=== PATIENT | female | born 1985 | race Caucasian/White ===

== ENCOUNTER → 2016-12-22 | Outpatient (CLI) | payer BC, OTHER ==
--- NOTE | 2016-12-22 10:07 | USB ---
Reason for exam: clinical finding. History: Family history of breast cancer in mother at age 36. Took hormonal contraceptives for 1 year beginning at age 26. Indicated problem(s): pain in the right breast. Physical Findings: Nurse Summary: pain starts in nipple travels to axilla/ 9-12 o'clock (nurse kp). US Breast RT Right breast ultrasound includes all four quadrants, the retroareolar region and axilla. Finding demonstrates a 0.5 x 0.3 x 0.6cm oval, cystic lesion at 7 o'clock for which a 6 month follow up is recommended and duct ectasia at the posterior nipple. These results were verbally communicated with the patient and result sheet given to the patient on 12/22/16 ASSESSMENT: Probably benign, BI-RAD 3 RECOMMENDATION: Ultrasound of the right breast in 6 months. Manage patient on a clinical basis. Routine screening mammogram of both breasts at age 35.
== END | disposition home or self-care (01) ==
LOC: RADUSWWP 09:01
PROVIDERS: ATTEND Obstetrics & Gynecology
DX: N64.4 Mastodynia (principal); Z80.3 Family history of malignant neoplasm of breast

== ENCOUNTER → 2017-06-25 | Outpatient (CLI) | payer BC ==
--- NOTE | 2017-06-25 08:20 | USB ---
Reason for exam: follow-up at short interval from prior study. History: Family history of breast cancer in mother at age 36. Took hormonal contraceptives for 1 year beginning at age 26. Physical Findings: Nurse did not find any significant physical abnormalities on exam. US Breast RT Right breast ultrasound includes all four quadrants, the retroareolar region and axilla. Finding demonstrates duct ectasia at the posterior nipple. Otherwise, no solid or cystic lesion. The previously seen 7 o'clock cystic lesion has resolved. These results were verbally communicated with the patient and result sheet given to the patient on 06/25/17. ASSESSMENT: Negative, BI-RAD 1 RECOMMENDATION: Routine screening mammogram of both breasts at age 40. (At age 40 unless clinical indication to start sooner. As the patient's mother had breast cancer at 36 years old, consideration can be given to starting screening now). BECKY
== END | disposition home or self-care (01) ==
LOC: RADUSWWP 06:58
PROVIDERS: ATTEND Obstetrics & Gynecology
DX: R92.8 Other abnormal and inconclusive findings on diagnostic imaging of breast (principal)

== ENCOUNTER 2018-07-17 20:44 | Emergency (ER) | payer BC ==
[2018-07-17 21:11] VITALS: BP 138/75; PULSE 107; RESP 18; TEMP 98.6
--- NOTE | 2018-07-17 22:02 | XR ---
EXAMINATION TYPE: XR ankle complete LT DATE OF EXAM: 07/17/2018 COMPARISON: NONE HISTORY: Ankle pain TECHNIQUE: 3 views FINDINGS: Ankle mortise is anatomic. There is a nondisplaced avulsion chip fracture of the base of th e fifth metatarsal. This measures 7 mm. IMPRESSION: Small chip fracture of the base of the fifth metatarsal.
--- NOTE | 2018-07-17 22:04 | XR ---
EXAMINATION TYPE: XR foot complete LT DATE OF EXAM: 07/17/2018 COMPARISON: NONE HISTORY: Pain TECHNIQUE: 3 views FINDINGS: There is nondisplaced transverse fracture across the base of the fifth metatarsal. There is a small fragment that measures 13 x 5 mm. IMPRESSION: Small chip fracture of the base of the fifth metatarsal. No displacement.
--- NOTE | 2018-07-17 22:07 | XR ---
EXAMINATION TYPE: XR tibia fibula LT DATE OF EXAM: 07/17/2018 COMPARISON: NONE HISTORY: Pain TECHNIQUE: 2 views FINDINGS: I see no fracture nor dislocation. Knee joint and ankle joint appear intact. There are no p athologic calcifications. IMPRESSION: Negative left tibia and fibula exam.
--- NOTE | 2018-07-17 22:49 | ED ---
General Adult HPI - General Source: patient, RN notes reviewed, old records reviewed Mode of arrival: wheelchair Limitations: physical limitation <Jesus Sorto - Last Filed: 07/17/18 23:12> <Angelika Cobb - Last Filed: 07/18/18 00:34> - General Chief complaint: Extremity Injury, Lower Stated complaint: ankle injury - History of Present Illness Initial comments: 33 y/o female pt presents in ED for L foot/ankle pain. Pt states that she was walking in her house when she stepped on one of her children's toys, suffered a left ankle inversion injury. Patient states that she has pain in her left lateral foot, patient is not ambulatory secondary to pain. Patient didn't fall , denies head trauma, denies neck trauma, loss of consciousness. Patient denies use of blood thinners. Patient had nausea vomiting diarrhea, fevers chills. Patient denies injury to any other extremity. Patient denies chest pain shortness of breath, abdominal pain. Systemic: Pt denies fatigue, myalgia, fever/chills, rash. Pt denies weakness, night sweats, weight loss. Neuro: Pt denies headache, visual disturbances, syncope or pre-syncope. HEENT: Pt denies ocular discharge or irritation, otalgia, rhinorrhea, pharyngitis or notable lymphadenopathy. Cardiopulmonary: Pt denies chest pain, SOB, heart palpitations, dyspnea on exertion. Abdominal/GI: Pt denies abdominal pain, n/v/d. : Pt denies dysuria, burning w/ urination, frequency/urgency. Denies new onset urinary or bowel incontinence. MSK: Pt denies myalgia, loss of strength or function in extremities. Neuro: Pt denies new onset weakness, paresthesias. (Jesus Sorto) - Related Data Home Medications Medication Instructions Recorded Confirmed No Known Home Medications 07/17/18 07/17/18 Allergies Allergy/AdvReac Type Severity Reaction Status Date / Time No Known Allergies Allergy Verified 07/17/18 21:11 Review of Systems ROS Other: All systems not noted in ROS Statement are negative. <Jesus Sorto - Last Filed: 07/17/18 23:12> ROS Other: All systems not noted in ROS Statement are negative. <Angelika Cobb - Last Filed: 07/18/18 00:34> ROS Statement: Those systems with pertinent positive or pertinent negative responses have been documented in the HPI. Past Medical History Past Medical History: No Reported History Additional Past Medical History / Comment(s): tyrese.leg varicose veins History of Any Multi-Drug Resistant Organisms: None Reported Past Surgical History: Section Additional Past Surgical History / Comment(s): wisdom teeth removal Past Anesthesia/Blood Transfusion Reactions: No Reported Reaction Past Psychological History: No Psychological Hx Reported Smoking Status: Never smoker Past Alcohol Use History: None Reported Past Drug Use History: None Reported - Past Family History Father Family Medical History: Cancer, Hypertension Additional Family Medical History / Comment(s): skin cancer Mother Family Medical History: Cancer Additional Family Medical History / Comment(s): breast cancer- <Jesus Sorto - Last Filed: 07/17/18 23:12> General Exam Limitations: physical limitation <Jesus Sorto - Last Filed: 07/17/18 23:12> <Angelika Cobb - Last Filed: 07/18/18 00:34> - General Exam Comments Initial Comments: Constitutional: NAD, AOX3, Pt has pleasant affect. HEENT: NC/AT, trachea midline, neck supple, no lymphadenopathy. Posterior pharynx non erythematous, without exudates. External ears appear normal, without discharge. Mucous membranes moist. Eyes PERRLA, EOM intact. There is no scleral icterus. No pallor noted. Cardiopulmonary: RRR, no murmurs, rubs or gallops, no JVD noted. Lungs CTAB in anterior and posterior quintanilla. No peripheral edema. Abdominal exam: Abdomen soft and non-distended. Abdomen non-tender to palpation in all 4 quadrants. Bowel sounds active in LLQ. No hepatosplenomegaly. No ecchymosis Neuro: CN II-XII grossly intact. No nuchal rigidity. MSK: Lateral metatarsal mildly tender to palpation. Patient plantar flexion and dorsiflexion intact, 5 over 5 strength. Patient posterior tibialis pulse + 2 bilaterally. Patient sensation intact. Patient neurovascularly intact before and after splint placement. No posterior calf tenderness bilaterally, homans sign negative bilaterally. Posterior tibialis and radial pulse +2 bilaterally. Sensation intact in upper and lower extremities. Full active ROM in upper and lower extremities, 5/5 strength. (Jesus Sorto) Vital Signs 07/17/18 21:08 Temperature 98.6 F Pulse Rate 107 H Respiratory 18 Rate Blood Pressure 138/75 O2 Sat by Pulse 100 Oximetry Medical Decision Making <Jesus Sorto - Last Filed: 07/17/18 23:12> <Angelika Cobb - Last Filed: 07/18/18 00:34> - Medical Decision Making 32-year-old female patient presents ED after sustaining a mechanical injury stepping on a child's toy, suffering a left ankle inversion injury. Patient primary complaint is pain in left foot. Patient tenderness of left lateral foot , fifth metatarsal. When film displayed small chip fracture base of left fifth metatarsal. Patient placed in posterior splint. Patient to vascular intact before and after splint placement. Patient nonweightbearing and told to follow- up. Patient given referral fororthopedic follow-up in Morning. Patient to return to ED if any signs or symptoms develop. Patient to follow with primary care physician in one to 2 days. Case discussed with Dr. Cobb. (Jesus Sorto) I was available for consultation in the emergency department. The history and physical exam were done by the midlevel provider. I was consulted for this patient's care. I reviewed the case with the midlevel provider and based on their presentation of the patient, I agree with the assessment, medical decision making and plan of care as documented. (Angelika Cobb) Disposition Is patient prescribed a controlled substance at d/c from ED?: No Time of Disposition: 22:49 <Jesus Sorto - Last Filed: 07/17/18 23:12> <Angelika Cobb - Last Filed: 07/18/18 00:34> Clinical Impression: Metatarsal bone fracture Disposition: HOME SELF-CARE Condition: Good Instructions: Foot Fracture in Adults (ED) Additional Instructions: Patient to adhere to previously discussed treatment plan and will take medication(s) as directed. Patient to follow up with PCP in 1-2 days. Patient to return to ED if symptoms do not improve. Referrals: Edvin Yeh MD [Primary Care Provider] - 1-2 days Harshad Perkins MD [STAFF PHYSICIAN] - 1-2 days
== END 2018-07-17 23:05 | disposition home or self-care (01) ==
LOC: EC 20:44
DX: S92.352A Displaced fracture of fifth metatarsal bone, left foot, initial encounter for closed fracture (principal); Z98.890 Other specified postprocedural states
CPT/HCPCS: 29515; 99284

== ENCOUNTER → 2019-01-03 | Outpatient (CLI) | payer BC ==
--- NOTE | 2019-01-03 09:28 | MM ---
Reason for exam: clinical finding. Last mammogram was performed 1 year and 1 month ago. History: Family history of breast cancer in maternal grandmother and breast cancer in mother at age 37. Took hormonal contraceptives for 1 year beginning at age 26. Physical Findings: Nurse did not find any significant physical abnormalities on exam. MG 3D Diag Mammo W/Cad LETICIA Bilateral CC and MLO view(s) were taken. Prior study comparison: November 22, 2017, bilateral MG 3d screening mammo w/cad. August 09, 2015, bilateral MG 3d diag mammo w/cad LETICIA. The breast tissue is extremely dense which could obscure a lesion on mammography. There are benign appearing round vascular calcifications in the left breast. There is no discrete abnormality. These results were verbally communicated with the patient and result sheet given to the patient on 01/03/19. ASSESSMENT: Negative, BI-RAD 1 RECOMMENDATION: Routine screening mammogram of both breasts at age 40. Manage on a clinical basis with regard to right breast pain. Consider MRI in high risk patient.
--- NOTE | 2019-01-03 09:30 | USB ---
Reason for exam: clinical finding. History: Family history of breast cancer in maternal grandmother and breast cancer in mother at age 37. Took hormonal contraceptives for 1 year beginning at age 26. US Breast RT Right complete breast ultrasound includes all four quadrants, the retroareolar region and axilla. Finding demonstrates no cystic or solid lesion seen. These results were verbally communicated with the patient and result sheet given to the patient on 01/03/19. ASSESSMENT: Negative, BI-RAD 1 RECOMMENDATION: Routine screening mammogram of both breasts at age 40. Manage on a clinical basis with regard to right breast pain. Consider MRI in high risk patient.
== END | disposition home or self-care (01) ==
LOC: RADMAMWWP 07:36
PROVIDERS: ATTEND Obstetrics & Gynecology
DX: N60.09 Solitary cyst of unspecified breast (principal); R92.8 Other abnormal and inconclusive findings on diagnostic imaging of breast
CPT/HCPCS: 77062; 77066

== ENCOUNTER → 2020-02-17 | Outpatient (CLI) | payer BC ==
--- NOTE | 2020-02-18 11:27 | MM ---
Reason for exam: screening (asymptomatic). Last mammogram was performed 1 year and 1 month ago. History: Family history of breast cancer in maternal grandmother and breast cancer in mother at age 37. Took hormonal contraceptives for 1 year beginning at age 26. Physical Findings: A clinical breast exam by your physician is recommended on an annual basis and results should be correlated with mammographic findings. MG 3D Screening Mammo W/Cad Bilateral CC and MLO view(s) were taken. Prior study comparison: January 03, 2019, bilateral MG 3d diag mammo w/cad LETICIA. November 22, 2017, bilateral MG 3d screening mammo w/cad. The breast tissue is extremely dense which could obscure a lesion on mammography. Stable benign calcifications. There is no discrete abnormality. No significant changes when compared with prior studies. ASSESSMENT: Benign, BI-RAD 2 RECOMMENDATION: Routine screening mammogram of both breasts in 1 year.
== END | disposition home or self-care (01) ==
LOC: RADMAMWWP 07:05
PROVIDERS: ATTEND Obstetrics & Gynecology
DX: Z12.31 Encounter for screening mammogram for malignant neoplasm of breast (principal); Z80.3 Family history of malignant neoplasm of breast
CPT/HCPCS: 77063; 77067

== ENCOUNTER → 2020-06-16 | Outpatient (CLI) | payer BC ==
--- NOTE | 2020-06-16 08:24 | MM ---
Reason for exam: screening (asymptomatic). Last mammogram was performed 4 months ago. History: Family history of breast cancer in maternal grandmother and breast cancer in mother at age 37. Took hormonal contraceptives for 1 year beginning at age 26. Physical Findings: Nurse did not find any significant physical abnormalities on exam. MG 3D Follow Up No Charge LETICIA Bilateral CC and MLO view(s) were taken. Prior study comparison: February 17, 2020, bilateral MG 3d screening mammo w/cad. January 03, 2019, bilateral MG 3d diag mammo w/cad LETICIA. The breast tissue is extremely dense which could obscure a lesion on mammography. No significant new findings when compared with previous films. These results were verbally communicated with the patient and result sheet given to the patient on 06/16/20. ASSESSMENT: Benign, BI-RAD 2 RECOMMENDATION: Routine screening mammogram of both breasts in 1 year. Patient should continue monthly self breast exams. A negative report should not preclude additional follow up of suspicious palpable abnormalities.
== END | disposition home or self-care (01) ==
LOC: RADMAMWWP 07:32
PROVIDERS: ATTEND Obstetrics & Gynecology
DX: Z53.9 Procedure and treatment not carried out, unspecified reason (principal)

== ENCOUNTER → 2020-10-27 | Outpatient (CLI) | payer BC ==
[2020-10-27 13:01] LABS: MCH 29.7 pg (25.0-35.0); MCHC 33.3 g/dL (31.0-37.0); MCV 89.3 fL (80.0-100.0); Mean Platelet Volume 7.2; Platelet Count 238 k/uL (150-450); RBC 4.37 m/uL (3.80-5.40); RDW 14.1 % (11.5-15.5); WBC 5.5 k/uL (3.8-10.6)
[2020-10-27 13:12] LABS: ALT 20 U/L (4-34); AST 27 U/L (14-36); African American GFR (CKD) >90 (>60 ml/min/1.73 sqM); Albumin 5.1 g/dL (3.5-5.0); Albumin/Globulin Ratio 1.5; Alkaline Phosphatase 53 U/L (38-126); Anion Gap 8 mmol/L; Blood Urea Nitrogen 12 mg/dL (7-17); Calcium 9.9 mg/dL (8.4-10.2); Carbon Dioxide 27 mmol/L (22-30); Chloride 103 mmol/L (98-107); Globulin 3.3 g/dL; Glucose 103 mg/dL (74-99); Non-African American GFR(CKD) >90 (>60 ml/min/1.73 sqM); Potassium 4.8 mmol/L (3.5-5.1); Sodium 138 mmol/L (137-145); Total Bilirubin 0.7 mg/dL (0.2-1.3); Total Protein 8.4 g/dL (6.3-8.2)
[2020-10-27 13:29] LABS: HCG,Quantitative Serum 189.9 mIU/mL
== END | disposition home or self-care (01) ==
LOC: LABWHC1 12:33
PROVIDERS: ATTEND Obstetrics & Gynecology
DX: O20.0 Threatened abortion (principal)
CPT/HCPCS: 36415; 80053; 84702; 85027

== ENCOUNTER → 2020-10-28 | Outpatient (CLI) | payer BC ==
[~2020-10-28] MED LIST: METHOTREXATE SODIUM (PF) 25 MG/ML 2 ML VIAL IM ONE
[2020-10-28 12:22] VITALS: BP 135/87; PULSE 100; RESP 16; TEMP 98.6
== END ==
LOC: PROCWHC3 11:48
PROVIDERS: ATTEND Obstetrics & Gynecology
DX: O00.109 Unspecified tubal pregnancy without intrauterine pregnancy (principal)
CPT/HCPCS: 96402; J9260

== ENCOUNTER → 2020-11-03 | Outpatient (CLI) | payer BC ==
[2020-11-03 14:49] LABS: HCT 39.5 % (37.2-46.3); HGB 12.9 g/dL (12.0-15.0); MCH 29.5 pg (27.0-32.0); MCHC 32.7 g/dL (32.0-37.0); MCV 90.4 fL (80.0-97.0); Mean Platelet Volume 10.7 fL (9.5-12.2); Platelet Count 266 X 10*3/uL (140-440); RBC 4.37 X 10*6/uL (4.10-5.20); RDW 13.5 % (11.5-14.5); WBC 4.41 X 10*3/uL (4.50-10.00)
[2020-11-03 16:54] LABS: African American GFR (CKD) 84.5 (60.0-200.0); Non-African American GFR(CKD) 72.9 (60.0-200.0)
[2020-11-03 17:02] LABS: HCG,Quantitative Serum 61.5 mIU/mL
== END | disposition home or self-care (01) ==
LOC: LABWHC1 07:57
PROVIDERS: ATTEND Obstetrics & Gynecology
DX: O00.109 Unspecified tubal pregnancy without intrauterine pregnancy (principal); Z3A.00 Weeks of gestation of pregnancy not specified
CPT/HCPCS: 36415; 82565; 84450; 84460; 84520; 84702; 85027

== ENCOUNTER → 2020-11-11 | Outpatient (CLI) | payer BC | END | disposition home or self-care (01) | LOC: LABWHC1 09:44 | PROVIDERS: ATTEND Obstetrics & Gynecology | DX: O00.109 Unspecified tubal pregnancy without intrauterine pregnancy (principal); Z3A.00 Weeks of gestation of pregnancy not specified | CPT/HCPCS: 36415; 84702 ==

== ENCOUNTER 2021-01-25 08:44 | Emergency (ER) | payer BC ==
[2021-01-25 08:52] VITALS: TEMP 98.2
[2021-01-25 09:04] VITALS: RESP 16
--- NOTE | 2021-01-25 09:15 | ED ---
General Adult HPI - General Chief complaint: Chest Pain Stated complaint: chest pain Time Seen by Provider: 01/25/21 09:02 Source: patient Mode of arrival: ambulatory Limitations: no limitations - History of Present Illness Initial comments: Dictation was produced using [employer] dictation software. please excuse any grammatical, word or spelling errors. Chief Complaint: 35-year-old female with no significant past medical history presents to the emergency Department for intermittent episodes of chest pain and pins and needles like sensation to her left face and left hand. History of Present Illness: 5-year-old female she has no significant comorbidities. Patient began having symptoms 2 weeks ago. Symptoms include iron off chest pain. She has history of a musculoskeletal disorder were she reports her ribs were from her sternum. This came about when she had twins 5 years ago. She currently sees a chiropractor. She states that her symptoms have been reviewed improving with the chiropractor. Patient states th at recently she began experiencing chest pain again for the last 2 weeks. 5 days later patient began having paresthesias to the left hand. And paresthesias began today to the left jaw area. Patient states to pins and needles like sensation. Stat complaint numb. She has no shortness of breath. At the bedside she doesn't have any symptoms currently. She tried to make an appointment with her primary care physician however was unable to get appointment until March. She reports that the pins and needle sensation to her left hand and Compass her fourth fifth digit posteriorly along with the thumb. The ROS documented in this emergency department record has been reviewed and confirmed by me. Those systems with pertinent positive or negative responses have been documented in the HPI. All other systems are other negative and/or noncontributory. PHYSICAL EXAM: General Impression: Alert and oriented x3, not in acute distress HEENT: Normocephalic atraumatic, extra-ocular movements intact, pupils equal and reactive to light bilaterally, mucous membranes moist. Cardiovascular: Heart regular rate and rhythm Chest: Able to complete full sentences, no retractions, no tachypnea Abdomen: abdomen soft, non-tender, non-distended, no organomegaly Musculoskeletal: Pulses present and equal in all extremities, no peripheral edema Motor: no focal deficits noted Neurological: CN II-XII grossly intact, no focal motor or sensory deficits noted, no extremity ataxia, NIH of 0 Skin: Intact with no visualized rashes Psych: Normal affect and mood ED course: 35-year-old female presents to the emergency department for intermittent episodes of chest pain, pins and needles like sensation to the left jaw and left hand. Vital signs upon arrival are within acceptable limits. Laboratory evaluation obtained. CBC unremarkable. Metabolic panel is negative. Urine hCG is negative. Chest x-ray shows no acute processes. Computed tomography scan of the brain is negative. Patient reevaluated at bedside at 10:45 AM found to be stable medical condition. Patient currently not expressing any symptoms. At this point is unclear was causing patient's symptoms. Patient does not exhibit any high-risk features. She'll be discharged with instructions to follow-up with primary care physician. EKG interpretation: Ventricular rate 95, normal sinus rhythm,. 126, QRS 82, QTc 437. No ND prolongation, no QTC prolongation, no ST or T-wave changes noted. Overall, this EKG is unremarkable - Related Data Home Medications Medication Instructions Recorded Confirmed No Known Home Medications 07/17/18 10/28/20 Allergies Allergy/AdvReac Type Severity Reaction Status Date / Time No Known Allergies Allergy Verified 01/25/21 08:52 Review of Systems ROS Statement: Those systems with pertinent positive or pertinent negative responses have been documented in the HPI. ROS Other: All systems not noted in ROS Statement are negative. Past Medical History Past Medical History: No Reported History Additional Past Medical History / Comment(s): tyrese.leg varicose veins History of Any Multi-Drug Resistant Organisms: None Reported Past Surgical History: Section Additional Past Surgical History / Comment(s): wisdom teeth removal Past Anesthesia/Blood Transfusion Reactions: No Reported Reaction Past Psychological History: No Psychological Hx Reported Smoking Status: Never smoker Past Alcohol Use History: None Reported Past Drug Use History: None Reported - Past Family History Father Family Medical History: Cancer, Hypertension Additional Family Medical History / Comment(s): skin cancer Mother Family Medical History: Cancer Additional Family Medical History / Comment(s): breast cancer- General Exam Limitations: no limitations Course Vital Signs 01/25/21 01/25/21 08:48 09:02 Temperature 98.2 F Pulse Rate 103 H Respiratory 18 16 Rate Blood Pressure 124/86 O2 Sat by Pulse 100 Oximetry Medical Decision Making - Lab Data Result diagrams: 01/25/21 09:31 01/25/21 09:31 Lab Results 01/25/21 01/25/21 01/25/21 Range/Units 09:31 09:31 09:31 WBC 4.0 (3.8-10.6) k/uL RBC 4.75 (3.80-5.40) m/uL Hgb 14.1 (11.4-16.0) gm/dL Hct 41.1 (34.0-46.0) % MCV 86.4 (80.0-100.0) fL MCH 29.7 (25.0-35.0) pg MCHC 34.3 (31.0-37.0) g/dL RDW 13.7 (11.5-15.5) % Plt Count 217 (150-450) k/uL MPV 7.6 Neutrophils % 50 % Lymphocytes % 36 % Monocytes % 7 % Eosinophils % 4 % Basophils % 1 % Neutrophils # 2.0 (1.3-7.7) k/uL Lymphocytes # 1.4 (1.0-4.8) k/uL Monocytes # 0.3 (0-1.0) k/uL Eosinophils # 0.2 (0-0.7) k/uL Basophils # 0.0 (0-0.2) k/uL Sodium 141 (137-145) mmol/L Potassium 4.2 (3.5-5.1) mmol/L Chloride 104 (98-107) mmol/L Carbon Dioxide 25 (22-30) mmol/L Anion Gap 12 mmol/L BUN 10 (7-17) mg/dL Creatinine 0.81 (0.52-1.04) mg/dL Est GFR (CKD-EPI)AfAm >90 (>60 ml/min/1.73 sqM) Est GFR (CKD-EPI)NonAf >90 (>60 ml/min/1.73 sqM) Glucose 105 H (74-99) mg/dL Calcium 9.9 (8.4-10.2) mg/dL Magnesium 2.1 (1.6-2.3) mg/dL Troponin I <0.012 (0.000-0.034) ng/mL Urine HCG, Qual (Not Detectd) 01/25/21 Range/Units 09:45 WBC (3.8-10.6) k/uL RBC (3.80-5.40) m/uL Hgb (11.4-16.0) gm/dL Hct (34.0-46.0) % MCV (80.0-100.0) fL MCH (25.0-35.0) pg MCHC (31.0-37.0) g/dL RDW (11.5-15.5) % Plt Count (150-450) k/uL MPV Neutrophils % % Lymphocytes % % Monocytes % % Eosinophils % % Basophils % % Neutrophils # (1.3-7.7) k/uL Lymphocytes # (1.0-4.8) k/uL Monocytes # (0-1.0) k/uL Eosinophils # (0-0.7) k/uL Basophils # (0-0.2) k/uL Sodium (137-145) mmol/L Potassium (3.5-5.1) mmol/L Chloride (98-107) mmol/L Carbon Dioxide (22-30) mmol/L Anion Gap mmol/L BUN (7-17) mg/dL Creatinine (0.52-1.04) mg/dL Est GFR (CKD-EPI)AfAm (>60 ml/min/1.73 sqM) Est GFR (CKD-EPI)NonAf (>60 ml/min/1.73 sqM) Glucose (74-99) mg/dL Calcium (8.4-10.2) mg/dL Magnesium (1.6-2.3) mg/dL Troponin I (0.000-0.034) ng/mL Urine HCG, Qual Not Detected (Not Detectd) Disposition Clinical Impression: Chest pain, Paresthesia Disposition: HOME SELF-CARE Condition: Good Instructions (If sedation given, give patient instructions): Chest Pain (ED), Paresthesia (ED) Is patient prescribed a controlled substance at d/c from ED?: No Referrals: Edvin Yeh MD [Primary Care Provider] - 1-2 days
[2021-01-25 09:40] LABS: Basophils % (A) 1 %; Eosinophils # (A) 0.2 k/uL (0-0.7); Eosinophils % (A) 4 %; HCT 41.1 % (34.0-46.0); HGB 14.1 gm/dL (11.4-16.0); Lymphocytes # (A) 1.4 k/uL (1.0-4.8); Lymphocytes % (A) 36 %; MCH 29.7 pg (25.0-35.0); MCHC 34.3 g/dL (31.0-37.0); MCV 86.4 fL (80.0-100.0); Mean Platelet Volume 7.6; Monocytes # (A) 0.3 k/uL (0-1.0); Monocytes % (A) 7 %; Neutrophils % (A) 50 %; Platelet Count 217 k/uL (150-450); RBC 4.75 m/uL (3.80-5.40); RDW 13.7 % (11.5-15.5)
[2021-01-25 09:58] LABS: African American GFR (CKD) >90 (>60 ml/min/1.73 sqM); Anion Gap 12 mmol/L; Blood Urea Nitrogen 10 mg/dL (7-17); Calcium 9.9 mg/dL (8.4-10.2); Carbon Dioxide 25 mmol/L (22-30); Chloride 104 mmol/L (98-107); Glucose 105 mg/dL (74-99); Magnesium 2.1 mg/dL (1.6-2.3); Non-African American GFR(CKD) >90 (>60 ml/min/1.73 sqM); Potassium 4.2 mmol/L (3.5-5.1); Sodium 141 mmol/L (137-145)
--- NOTE | 2021-01-25 10:26 | CT ---
EXAMINATION TYPE: CT brain wo con DATE OF EXAM: 01/25/2021 COMPARISON: None HISTORY: Left sided facial numbness, tingling and chest pain intermittently for [address] DLP: 1098.[address] of the brain was performed. The ventricles, basal cisterns and sulci overlying the cerebral convexities demonstrate a normal appe arance. There is no evidence for intracranial hemorrhage or sulcal effacement. No mass effects are seen. Osseous calvarium is intact. If symptoms persist consider MRI as clinically warranted. IMPRESSION: 1. No acute intracranial process is seen at this time.
--- NOTE | 2021-01-25 10:28 | XR ---
EXAMINATION TYPE: XR chest 1V portable DATE OF EXAM: 01/25/2021 COMPARISON: NONE HISTORY: Pain TECHNIQUE: Single frontal view of the chest is obtained. FINDINGS: There is no focal air space opacity, pleural effusion, or pneumothorax seen. The cardiac silhouette size is within normal limits. There are overlying leads. The osseous structures are intac t. IMPRESSION: No acute process.
[2021-01-25 10:52] VITALS: BP 143/85; PULSE 99
== END 2021-01-25 10:47 | disposition home or self-care (01) ==
LOC: EC 08:44
DX: R07.9 Chest pain, unspecified (principal); R20.2 Paresthesia of skin
CPT/HCPCS: 36415; 70450; 71045; 80048; 81025; 83735; 84484; 85025; 93005

== ENCOUNTER → 2021-09-22 | Outpatient (CLI) | payer BC ==
[2021-09-22 09:31] LABS: Basophils % (A) 1 %; Eosinophils # (A) 0.1 k/uL (0-0.7); Eosinophils % (A) 2 %; HCT 38.5 % (34.0-46.0); HGB 12.8 gm/dL (11.4-16.0); Lymphocytes # (A) 1.3 k/uL (1.0-4.8); Lymphocytes % (A) 31 %; MCH 30.5 pg (25.0-35.0); MCHC 33.3 g/dL (31.0-37.0); MCV 91.5 fL (80.0-100.0); Mean Platelet Volume 7.3; Monocytes # (A) 0.2 k/uL (0-1.0); Monocytes % (A) 4 %; Neutrophils # (A) 2.5 k/uL (1.3-7.7); Neutrophils % (A) 60 %; Platelet Count 221 k/uL (150-450); RBC 4.21 m/uL (3.80-5.40); RDW 14.4 % (11.5-15.5); WBC 4.2 k/uL (3.8-10.6)
== END | disposition home or self-care (01) ==
LOC: LABWHC1 08:46
PROVIDERS: ATTEND Obstetrics & Gynecology
DX: O20.0 Threatened abortion (principal)
CPT/HCPCS: 36415; 84702; 85025

== ENCOUNTER → 2021-09-22 | Outpatient (CLI) | payer BC ==
--- NOTE | 2021-09-22 13:18 | US ---
EXAMINATION TYPE: Ultrasound OB <= 14 weeks transvaginal DATE OF EXAM: 09/22/2021 12:46 PM COMPARISON: NONE CLINICAL HISTORY: 36-year-old female O26.851. Positive HCG. Spotting x 5 days. EXAM PERFORMED: Transvaginal (TV) and Transabdominal (TA) EXAM MEASUREMENTS: FINDINGS: GESTATIONAL AGE / DATING Physician Established: Not yet established Dates by LMP: ( 6 weeks/3 days) EDC: 05/15/2022 Dates by First Scan: No previous this is first scan Dates by Current Scan for: No IUP seen at this time MATERNAL ANATOMY Uterus: 9.9 x 6.3 x 3.9 cm. scar. Small cervical nabothian cysts measuring up to 3 mm. Right Ovary: 3.7 x 1.9 x 1.8 cm Left Ovary: 3.1 x 1.6 x 1.7 cm Post CDS / Adnexa: free fluid Presence of free fluid: right adnexa, CDS. There seems to be some heterogeneous material within some of the fluid. Presence of corpus luteal cyst: Right ovary= 1.5 x 1.8 x 1.4 cm GESTATION / SURVEY IUP: No IUP seen at this time Date of LMP: 08/08/2021, A1 Beta HcG (if available): 937.3 Embedded Engineer notes: No GS, YS or CRL seen. Mild complicated fluid seen in endometrial cavity. Moderat e free fluid seen in right adnexa and posterior cul de sac. Prominent vessels seen in bilateral adnex a. A tubular structure in the right adnexa with a diameter of 1.1 cm. IMPRESSION: 1. Some complicated/hemorrhagic fluid mildly distending the uterine cavity. No visualized intrauterin e . 2. Given moderate pelvic free fluid containing debris, possible hemorrhagic debris, and a tubular 1.1 cm structure in the right adnexa, the possibility of a nonvisualized ectopic should be con sidered. Appropriate follow-up recommended. Otherwise, remaining differential considerations include too early to visualize intrauterine and failed .
== END | disposition home or self-care (01) ==
LOC: RADUSWWP 12:10
PROVIDERS: ATTEND Obstetrics & Gynecology
DX: O26.851 Spotting complicating pregnancy, first trimester (principal); Z3A.01 Less than 8 weeks gestation of pregnancy
CPT/HCPCS: 76801; 76817

== ENCOUNTER → 2021-09-24 | Outpatient (CLI) | payer BC ==
[2021-09-24 08:23] LABS: HCT 36.4 % (34.0-46.0); HGB 12.3 gm/dL (11.4-16.0); MCHC 33.8 g/dL (31.0-37.0); MCV 91.8 fL (80.0-100.0); Mean Platelet Volume 7.5; Platelet Count 205 k/uL (150-450); RBC 3.97 m/uL (3.80-5.40); RDW 13.8 % (11.5-15.5); WBC 5.1 k/uL (3.8-10.6)
== END | disposition home or self-care (01) ==
LOC: LABWHC1 08:05
PROVIDERS: ATTEND Obstetrics & Gynecology
DX: O20.0 Threatened abortion (principal); Z3A.00 Weeks of gestation of pregnancy not specified
CPT/HCPCS: 36415; 84702; 85027

== ENCOUNTER 2021-09-28 15:47 | Outpatient (CLI) | payer BC ==
[2021-09-28] MEDS ORDERED: METHOTREXATE SODIUM (PF) 25 MG/ML 2 ML VIAL IM ONE (15:52)
[2021-09-28 16:36] VITALS: BP 132/86; PULSE 91; RESP 18; TEMP 98
== END 2021-09-28 16:37 | disposition home or self-care (01) ==
LOC: FBPOP 15:47
PROVIDERS: ATTEND Obstetrics & Gynecology
DX: O00.90 Unspecified ectopic pregnancy without intrauterine pregnancy (principal)
CPT/HCPCS: 96372; J9260

== ENCOUNTER → 2021-09-28 | Outpatient (CLI) | payer BC ==
[2021-09-28 23:13] LABS: Blood Urea Nitrogen 9.5 mg/dL (9.0-27.0); Non-African American GFR(CKD) 99.2 (60.0-200.0)
[2021-09-28 23:18] LABS: HCT 36.9 % (37.2-46.3); MCH 29.1 pg (27.0-32.0); MCHC 32.5 g/dL (32.0-37.0); MCV 89.3 fL (80.0-97.0); Mean Platelet Volume 10.6 fL (9.5-12.2); NRBC Per 100 WBC 0 /100 WBCS (0.0-0.0); Platelet Count 248 X 10*3/uL (140-440); RBC 4.13 X 10*6/uL (4.10-5.20); RDW 13.9 % (11.5-14.5)
== END | disposition home or self-care (01) ==
LOC: LABWHC1 15:30
PROVIDERS: ATTEND Obstetrics & Gynecology
DX: O00.109 Unspecified tubal pregnancy without intrauterine pregnancy (principal); Z3A.00 Weeks of gestation of pregnancy not specified
CPT/HCPCS: 36415; 82565; 84450; 84460; 84520; 84702; 85027

== ENCOUNTER → 2021-10-01 | Outpatient (CLI) | payer BC | END | disposition home or self-care (01) | LOC: LABWHC1 08:45 | PROVIDERS: ATTEND Obstetrics & Gynecology | DX: O00.109 Unspecified tubal pregnancy without intrauterine pregnancy (principal); Z3A.00 Weeks of gestation of pregnancy not specified | CPT/HCPCS: 36415; 84702 ==

== ENCOUNTER → 2021-10-04 | Outpatient (CLI) | payer BC ==
[2021-10-04 14:33] LABS: HCT 35.7 % (37.2-46.3); HGB 11.6 g/dL (12.0-15.0); MCH 28.9 pg (27.0-32.0); MCHC 32.5 g/dL (32.0-37.0); Mean Platelet Volume 10.2 fL (9.5-12.2); NRBC Per 100 WBC 0 /100 WBCS (0.0-0.0); Platelet Count 269 X 10*3/uL (140-440); RBC 4.01 X 10*6/uL (4.10-5.20); RDW 13.6 % (11.5-14.5); WBC 3.85 X 10*3/uL (4.50-10.00)
[2021-10-04 16:42] LABS: African American GFR (CKD) 106.2 (60.0-200.0); Blood Urea Nitrogen 8.7 mg/dL (9.0-27.0); HCG,Quantitative Serum 98.8 (0.0-6.0); Non-African American GFR(CKD) 91.7 (60.0-200.0)
== END | disposition home or self-care (01) ==
LOC: LABWHC1 08:50
PROVIDERS: ATTEND Obstetrics & Gynecology
DX: O00.109 Unspecified tubal pregnancy without intrauterine pregnancy (principal); Z3A.00 Weeks of gestation of pregnancy not specified
CPT/HCPCS: 36415; 82565; 84450; 84460; 84520; 84702; 85027

== ENCOUNTER → 2021-10-12 | Outpatient (CLI) | payer BC | END | disposition home or self-care (01) | LOC: LABWHC1 09:38 | PROVIDERS: ATTEND Obstetrics & Gynecology | DX: O00.80 Other ectopic pregnancy without intrauterine pregnancy (principal); Z3A.00 Weeks of gestation of pregnancy not specified | CPT/HCPCS: 36415; 84702 ==